=== PATIENT | female | born 1990 | race Caucasian/White ===

== ENCOUNTER 2017-09-09 14:30 | Emergency (ER) | payer MEDICAID ==
--- NOTE | 2017-09-09 16:05 | C.PDOC ---
History Of Present Illness <Mee Gutierrez - Last Filed: 09/09/17 19:03> <Maico Martin - Last Filed: 09/09/17 19:25> History taken via bench mover: 27 year old female , miscarriage #1, LNMP 05/28/17, 12 wks , presents to the ED for evaluation of lower abdominal cramping associated with scanty vaginal bleeding that started this morning. Patient admits, (+) care, " take some vaginal suppositories now". Pt unable to recall name of current suppository. Otherwise, Patient denies headache, dizziness, fever, CP, SOB, dyspnea, palpitation, vomit, back pain, urinary symptoms. Ambulatory in ED with stable gait, not in any apparent distress. (Mee Gutierrez) History Per: Patient History/Exam Limitations: no limitations Onset/Duration Of Symptoms: Hrs Current Symptoms Are (Timing): Still Present Location Of Pain/Discomfort: Other (Lower abdomen) Radiation Of Pain To:: None Quality Of Discomfort: Cramping Associated Symptoms: Other (Scanty vaginal bleeding) Recent travel outside of the [place]: No Additional History Per: Patient Abnormal Vaginal Bleeding: Yes Last Menstral Period: 05/28/17 : 4 Para: 2 <Mee Gutierrez - Last Filed: 09/09/17 19:03> <Maico Martin - Last Filed: 09/09/17 19:25> Time Seen by Provider: 09/09/17 15:28 Chief Complaint (Nursing): Abdominal Pain Past Medical History Reviewed: Historical Data, Nursing Documentation, Vital Signs - Medical History PMH: No Chronic Diseases Surgical History: No Surg Hx Family History: States: Unknown Family Hx - Social History Hx Tobacco Use: No Hx Alcohol Use: No Hx Substance Use: No - Immunization History Hx Tetanus Toxoid Vaccination: No Hx Influenza Vaccination: No Hx Pneumococcal Vaccination: No <Mee Gutierrez - Last Filed: 09/09/17 19:03> Vital Signs: Last Vital Signs Temp 98.2 F 09/09/17 17:53 Pulse 71 09/09/17 17:53 Resp 18 09/09/17 17:53 BP 94/55 L 09/09/17 17:53 Pulse Ox 100 09/09/17 19:04 Review Of Systems Constitutional: Negative for: Fever, Chills Cardiovascular: Negative for: Chest Pain, Palpitations Respiratory: Negative for: Cough, Shortness of Breath Gastrointestinal: Positive for: Abdominal Pain. Negative for: Nausea, Vomiting Genitourinary: Positive for: Vaginal Bleeding. Negative for: Dysuria, Incontinence Musculoskeletal: Negative for: Back Pain Skin: Negative for: Rash <AlexandreakarenMee - Last Filed: 09/09/17 19:03> Physical Exam - Physical Exam Appears: Non-toxic, No Acute Distress Skin: Normal Color, Warm, Dry Head: Normacephalic Eye(s): bilateral: PERRL Nose: No Discharge Oral Mucosa: Moist, No Drooling Throat: Normal, No Erythema, No Exudate Neck: Trachea Midline, Supple Cardiovascular: Rhythm Regular, No Murmur, No JVD Respiratory: No Decreased Breath Sounds, No Accessory Muscle Use, No Stridor, No Wheezing Gastrointestinal/Abdominal: Soft, No Tenderness, No Organomegaly, No Distention , No Guarding, No Rebound Pelvic: Vaginal Bleeding (diffuse) Extremity: Normal ROM, No Pedal Edema Neurological/Psych: Oriented x3, Normal Speech, Normal Cognition Gait: Steady <AlexandreakarenMee - Last Filed: 09/09/17 19:03> ED Course And Treatment - Laboratory Results Result Diagrams: 09/09/17 16:33 Urine POC: Positive O2 Sat by Pulse Oximetry: 100 (On RA) Pulse Ox Interpretation: Normal - CT Scan/US US - Transvaginal Other Rad Studies (CT/US): Read By Radiologist, Radiology Report Reviewed CT/US Interpretation: EXAM: US First Trimester, Transabdominal. EXAM DATE/TIME: 09/09/2017 4:03 PM. CLINICAL HISTORY: 27 years old, female; Signs and symptoms; Lmp or gestational age (in weeks): 05/28/2017; Other: Bleeding; ; Additional info: Vaginal bleeding. TECHNIQUE: Real-time transabdominal obstetrical ultrasound of the maternal pelvis and a first trimester. with image documentation. COMPARISON: There are no prior studies for comparison./. FINDINGS: Gestation: There is a single intrauterine gestation.Gestational sac has mean diameter 51.6 mm. Gann rump length measures 53.7 mm. There is a heart rate of 159 beats per minute. There is a. very large subchorionic hemorrhage almost completely surrounding the gestational sac. Uterus: Uterus measures approximately 13 x 10 x 12 cm. The cervix measures approximately 4 cm. in length. No myometrial mass. Ovaries : Right ovary measures approximately 3.4 x 1.4 x 2.8 cm. Left ovary measures. approximately 3.2 x 2.2 x 3 cm. There are multiple small follicles. There is intraovarian blood flow. Free fluid: There is no free fluid. IMPRESSION: 11 week 4 day single living intrauterine gestation, estimated date of delivery 03/27;. extremely large subchorionic hemorrhage almost completely surrounding the gestational sac or Progress Note: Plan: -Blood work, UA ordered. -US transvaginal ordered. US results review, case discussed with OB-on-call and consult requested. <Mee Gutierrez - Last Filed: 09/09/17 19:03> - Laboratory Results Result Diagrams: 09/09/17 16:33 Urine POC: Positive Pulse Ox Interpretation: Normal Progress Note: Dr Fair saw the pt in the ED @ 7 PM. Ok to discharge and follow up with her private histology technician Reevaluation Time: 19:00 <Maico Martin - Last Filed: 09/09/17 19:25> Disposition - Disposition Disposition Time: 19:03 <Mee Gutierrez - Last Filed: 09/09/17 19:03> Counseled Patient/Family Regarding: Studies Performed, Diagnosis, Need For Followup <Maico Martin - Last Filed: 09/09/17 19:25> - Disposition Disposition: HOME/ ROUTINE Condition: FAIR Additional Instructions: Please return if symptoms recur Instructions: Threatened Miscarriage (ED), Subchorionic Hemorrhage (ED) Forms: [employer] (Hungarian) - Clinical Impression Clinical Impression: Subchorionic hemorrhage in first trimester, Threatened - PA / ASSEMBLER ADJUSTER / Resident Statement MD/DO has reviewed & agrees with the documentation as recorded. - Scribe Statement The provider has reviewed the documentation as recorded by the Scribe <Mee Gutierrez - Last Filed: 09/09/17 19:03> <Maico Martin - Last Filed: 09/09/17 19:25> - Scribe Statement Narendra Apple All medical record entries made by the Scribe were at my direction and personally dictated by me. I have reviewed the chart and agree that the record accurately reflects my personal performance of the history, physical exam, medical decision making, and the department course for this patient. I have also personally directed, reviewed, and agree with the discharge instructions and disposition. (Mee Gutierrez) Physician Patient Turnover Patient Signed Over To: Maico Martin Handoff Comments: OB consult with <Mee Gutierrez - Last Filed: 09/09/17 19:03>
[2017-09-09 16:37] LABS: BASO % 0.2 % (0.0-2.0); EOS % 0.1 % (0.0-4.0); HEMATOCRIT 37.4 % (34.0-47.0); LYMPH # 0.7 K/uL (1.0-4.3); LYMPH % 10.6 % (20.0-40.0); MEAN CELL VOLUME 77.7 fL (81.0-99.0); MEAN CORPUSCULAR HEMOGLOBIN 26.3 pg (27.0-31.0); MEAN CORPUSCULAR HGB CONC 33.8 g/dL (33.0-37.0); MEAN PLATELET VOLUME 9.2 fL (7.2-11.7); MONO # 0.3 K/uL (0.0-0.8); MONO % 4.4 % (0.0-10.0); NRBC % 0.1 % (0.0-2.0); RED CELL DISTRIBUTION WIDTH 14.6 % (11.5-14.5); WHITE BLOOD COUNT 6.8 K/uL (4.8-10.8)
[2017-09-09 16:51] LABS: RBC URINE 11 /hpf (0-3); URINE BACTERIA RARE (<OCC); URINE BILIRUBIN NEGATIVE (NEGATIVE); URINE BLOOD 3+ (NEGATIVE); URINE COLOR Yellow (YELLOW); URINE GLUCOSE (UA) NORMAL (Normal); URINE KETONE NEGATIVE (NEGATIVE); URINE LEUKOCYTE ESTERASE NEG Leu/uL (Negative); URINE PROTEIN NEGATIVE (NEGATIVE); URINE UROBILINOGEN NORMAL mg/dL (0.2-1.0); WBC URINE < 1 /hpf (0-5)
[2017-09-09 17:54] VITALS: TEMP 98.2
--- NOTE | 2017-09-09 18:20 | US ---
EXAM: US First Trimester, Transabdominal EXAM DATE/TIME: 09/09/2017 4:03 PM CLINICAL HISTORY: 27 years old, female; Signs and symptoms; Lmp or gestational age (in weeks): 05/28/2017; Other: Bleeding; ; Additional info: Vaginal bleeding TECHNIQUE: Real-time transabdominal obstetrical ultrasound of the maternal pelvis and a first trimester with image documentation. COMPARISON: There are no prior studies for comparison./ FINDINGS: Gestation: There is a single intrauterine gestation.Gestational sac has mean diameter 51.6 mm. Ulysses rump length measures 53.7 mm. There is a heart rate of 159 beats per minute. There is a very large subchorionic hemorrhage almost completely surrounding the gestational sac. Uterus: Uterus measures approximately 13 x 10 x 12 cm. The cervix measures approximately 4 cm in length. No myometrial mass. Ovaries: Right ovary measures approximately 3.4 x 1.4 x 2.8 cm. Left ovary measures approximately 3.2 x 2.2 x 3 cm. There are multiple small follicles. There is intraovarian blood flow. Free fluid: There is no free fluid. IMPRESSION: 11 week 4 day single living intrauterine gestation, estimated date of delivery 03/27/18; extremely large subchorionic hemorrhage almost completely surrounding the gestational sac or
[2017-09-09 18:22] VITALS: O2SAT 100
[2017-09-09] MEDS ORDERED: Sodium Chloride 0.9% 1,000 ML IV ONE (19:06)
--- NOTE | 2017-09-09 19:19 | CP.PCM.CON ---
History of Present Illness - History of Present Illness History of Present Illness: 27 yr at 11+weeks came with c/o cramping and some vaginal bleeding started 5 pm. pt had sex yesterday.pt has a private physician in [facility] and using progestrone suupositry.desired preg obhx 2 x pmh den med pnv all nkda psh den soch den ssse min bleeding cervix closed sono 11.4weeks+fh large subchorionic hemmarage Past Patient History - Infectious Disease Hx of Infectious Diseases: None - Past Social History Smoking Status: Never Smoked - PSYCHIATRIC Hx Substance Use: No - SURGICAL HISTORY Hx Surgeries: No Meds Allergies/Adverse Reactions: Allergies Allergy/AdvReac Type Severity Reaction Status Date / Time No Known Allergies Allergy Verified 09/09/17 15:49 - Medications Medications: Current Medications Sodium Chloride (Sodium Chloride 0.9%) 1,000 mls @ 1,000 mls/hr IV .Q1H ONE Stop: 09/09/17 20:05 Physical Exam - Exam External exam: NORMAL EXTERNAL EXAM (small blood) Speculum exam: NORMAL SPECULUM EXAM, Vaginal Bleeding (min vb) Bimanual exam: NORMAL BIMANUAL EXAM (cervix closed) - Extremities Exam Extremities exam: Positive for: normal inspection Results - Vital Signs Recent Vital Signs: Last Vital Signs Temp 98.2 F 09/09/17 17:53 Pulse 71 09/09/17 17:53 Resp 18 09/09/17 17:53 BP 94/55 L 09/09/17 17:53 Pulse Ox 100 09/09/17 19:04 - Labs Result Diagrams: 09/09/17 16:33 Labs: Laboratory Results - last 24 hr 09/09/17 09/09/17 09/09/17 16:33 16:33 16:33 WBC 6.8 RBC 4.82 Hgb 12.6 Hct 37.4 MCV 77.7 L MCH 26.3 L MCHC 33.8 RDW 14.6 H Plt Count 185 MPV 9.2 Neut % (Auto) 84.7 H Lymph % (Auto) 10.[address] [place] % (Auto) 4.4 Eos % (Auto) 0.1 Baso % (Auto) 0.2 Neut # 5.8 Lymph # 0.[address] [place] # 0.3 Eos # 0.0 Baso # 0.0 Beta HCG, Quant 225781.00 Urine Color Yellow Urine Clarity Clear Urine pH 6.0 Ur Specific [place] 1.019 Urine Protein Negative Urine Glucose (UA) Normal Urine Ketones Negative Urine Blood 3+ H Urine Nitrate Negative Urine Bilirubin Negative Urine Urobilinogen Normal Ur Leukocyte Esterase Neg Urine WBC (Auto) < 1 Urine RBC (Auto) 11 H Ur Squamous Epith Cells 2 Urine Bacteria Rare Urine HCG, Qual Positive Blood Type Antibody Screen 09/09/17 16:33 WBC RBC Hgb Hct MCV MCH MCHC RDW Plt Count MPV Neut % (Auto) Lymph % (Auto) [place] % (Auto) Eos % (Auto) Baso % (Auto) Neut # Lymph # [place] # Eos # Baso # Beta HCG, Quant Urine Color Urine Clarity Urine pH Ur Specific [place] Urine Protein Urine Glucose (UA) Urine Ketones Urine Blood Urine Nitrate Urine Bilirubin Urine Urobilinogen Ur Leukocyte Esterase Urine WBC (Auto) Urine RBC (Auto) Ur Squamous Epith Cells Urine Bacteria Urine HCG, Qual Blood Type A POSITIVE Antibody Screen Negative Assessment & Plan - Assessment and Plan (Free Text) Assessment: 27yr at 11+weks with vaginal bleeding/subchorionic hmg Plan: plan dc home no sex bed rest cont progestrone suppositry f/u in Dr Pablo in 1 day if heavy vb come to ER - Date & Time Date: 09/09/17 Time: 19:40
[2017-09-09 19:31] VITALS: BP 106/71; PULSE 75; RESP 20
== END 2017-09-09 20:04 | disposition home or self-care (01) ==
LOC: C.ER 14:30
DX: O20.0 Threatened abortion (principal); Z3A.11 11 weeks gestation of pregnancy

== ENCOUNTER 2019-02-22 12:30 | Emergency (ER) | payer OTHER ==
[2019-02-22 13:48] VITALS: BMI 23.1
[2019-02-22 14:30] LABS: URINE BILIRUBIN NEGATIVE (NEGATIVE); URINE BLOOD 1+ (NEGATIVE); URINE CLARITY Clear (Clear); URINE COLOR Straw (YELLOW); URINE GLUCOSE (UA) NORMAL (Normal); URINE LEUKOCYTE ESTERASE NEG Leu/uL (Negative); URINE PROTEIN NEGATIVE (NEGATIVE); URINE UROBILINOGEN NORMAL mg/dL (0.2-1.0)
--- NOTE | 2019-02-22 15:08 | OBHP ---
Datetime: 02/22/2019 13:40 IP Adm Impression: , intrauterine IP Chief Complaint Other: back pain IP Adm Impression Other: Low Back Pain IP Admit Plan: Observation/Evaluation Admit Comment, IP Provider: 29 yo edc 04/28/19 @ 30.5wks presents w/ c/o lower back pain. Den ies fever, dysuria, ctxs, vag bleeding or srom. Pt receives pnc in [place], [place] pobx: x2; spont ab in 1st trim and 2nd trim ab pmhx: denies i: 30.5wks LBP p: check ua. Addendum: pt states LBP has resolved. no c/o o: ua neg rbcs +blood p: pt advised of ua findings rth if LBP returns. possibility of renal stones d/w pt. maintain increased water hydration. f/u w/ new ob dr alcaraz. Abdomen - PN: Normal Back - PN: Normal Lungs - PN: Normal Heart - PN: Normal Neurologic - PN: Normal HEENT - PN: Normal General - PN: Normal EGA AdmitDate IP: 30.5 IP Chief Complaint: Other
[2019-02-22 23:13] VITALS: BP 108/70; PULSE 83; RESP 20; TEMP 97.7
== END 2019-02-22 14:54 | disposition home or self-care (01) ==
LOC: C.EROB 12:30
DX: O26.893 Other specified pregnancy related conditions, third trimester (principal); M54.5 Low back pain; Z3A.30 30 weeks gestation of pregnancy